=== PATIENT | female | born 1970 | race Caucasian/White ===

== ENCOUNTER 2019-01-24 06:28 | Emergency (ER) | payer OTHER ==
--- NOTE | 2019-01-24 07:15 | ERPHSYRPT ---
- History of Present Illness Time Seen by Provider: 01/24/19 07:00 Source: patient Exam Limitations: no limitations Patient Subjective Stated Complaint: pt states she hit her head on a shelf when she stood up. denies loss of consciousness. Triage Nursing Assessment: pt alert and oriented, answers questions approp. pt ambulatory with steady gait noted. respirations nonlabored with lungs cta. skin pink warm and dry. approx 1cm lac noted to lt fron head with no bleeding noted at this time. pupils equal and reactive. bilat upper and lower ext strength equal and wnl. Physician History: 48 y/o white female hit her head on shelf when she suddenly stood up while at home. she had bleeding and sig pain in the area. still with headache and dizziness. no loc. no anticoag tx. tetanus status not utd. Occurred: just prior to arrival Severity: mild Head Injury Location: occipital Method of Injury: direct blow Loss of Consciousness: no loss of consciousness, dazed Associated Symptoms: headaches Allergies/Adverse Reactions: No Known Drug Allergies Allergy (Verified 01/24/19 06:47) Home Medications: Escitalopram Oxalate 10 mg [Lexapro 10 MG] 10 mg PO DAILY 05/03/17 [History] Gabapentin [Neurontin] 300 - 600 mg PO BID 05/03/17 [History] Hydrocodone/Acetaminophen [[place] 5-325 Tablet] 1 each PO [id number] PRN 05/03/17 [ History] Meloxicam [Mobic] 15 mg PO DAILY 05/03/17 [History] Omeprazole 20 MG [Prilosec 20 mg] 20 mg PO DAILY 05/03/17 [History] Tizanidine HCl [Zanaflex] 4 mg PO DAILY 07/24/17 [History] Hx Tetanus, Diphtheria Vaccination/Date Given: (unsure) Hx Influenza Vaccination/Date Given: No Hx Pneumococcal Vaccination/Date Given: No Immunizations Up to Date: No - Review of Systems Constitutional: No Symptoms Eyes: No Symptoms Ears, Nose, & Throat: No Symptoms Respiratory: No Symptoms Cardiac: No Symptoms Abdominal/Gastrointestinal: No Symptoms Genitourinary Symptoms: No Symptoms Musculoskeletal: No Symptoms Neurological: Dizziness, Headache Psychological: No Symptoms Endocrine: No Symptoms Hematologic/Lymphatic: No Symptoms Immunological/Allergic: No Symptoms All Other Systems: Reviewed and Negative - Past Medical History Pertinent Past Medical History: Yes Neurological History: Migraines ENT History: No Pertinent History Cardiac History: No Pertinent History Respiratory History: No Pertinent History Endocrine Medical History: No Pertinent History GI Medical History: No Pertinent History History: No Pertinent History Psycho-Social History: No Pertinent History Female Reproductive Disorders: Other Other Medical History: bartholian cyst - Past Surgical History Past Surgical History: Yes Neuro Surgical History: No Pertinent History Cardiac: No Pertinent History Respiratory: No Pertinent History Gastrointestinal: No Pertinent History Genitourinary: No Pertinent History Female Surgical History: Tubal Ligation, Other Other Surgical History: D&C, lt wrist x2 2017 - Social History Smoking Status: Current some day smoker How long have you smoked: occasional Exposure to second hand smoke: Yes Drug Use: none Patient Lives Alone: No - Female History Hx Last Menstrual Period: ablation Hx Now: No - Nursing Vital Signs Nursing Vital Signs: Initial Vital Signs Temperature 97.8 F 01/24/19 06:36 Pulse Rate 87 01/24/19 06:36 Respiratory Rate 16 01/24/19 06:36 Blood Pressure 139/76 01/24/19 06:36 O2 Sat by Pulse Oximetry 98 01/24/19 06:36 Pain Scale Pain Intensity 5 - Tariq Coma Score Best Eye Response (Clarkson): (4) open spontaneously Best Verbal Response (Tariq): (5) oriented Best Motor Response (Tariq): (6) obeys commands Clarkson Total: 15 - Physical Exam General Appearance: no apparent distress, alert, anxiety Head Injury: tenderness (at a top of head abrasion and 2mm puncture site. no active bleeding.) ENT Exam: airway nml, nml ext.inspection, hearing grossly normal, No evidence of ENT injury Neck Exam: supple, trachea midline, full range of motion, normal alignment, normal inspection Cardiovascular/Respiratory Exam: chest non-tender Gastrointestinal/Abdominal Exam: non tender Pelvic Exam: not done Rectal Exam: not done Back Exam: normal inspection, normal range of motion, No CVA tenderness, No vertebral tenderness Extremity Exam: non-tender Mental Status Exam: alert, oriented x 3, cooperative oracle erp developer Exam: normal hearing, normal speech, PERRL, tongue midline Coordination/Gait Exam: normal finger to nose, normal gait, normal cerebellar function Motor/Sensory Exam: no motor deficit, no sensory deficit, no pronator drift Skin Exam: normal color, warm, dry Lymphatic Exam: No adenopathy SpO2 Interpretation: normal SpO2: 98 O2 Delivery: Room Air - Course Nursing assessment & vital signs reviewed: Yes Ordered Tests: Active Orders 24 hr Category Date Time Status HEAD WITHOUT CONTRAST [CT] Stat Exams 01/24/19 07:17 Taken Medication Summary Discontinued Medications Generic Name Dose Route Start Last Admin Trade Name Joeyq PRN Reason Stop Dose Admin Diphtheria/Tetanus/Acell Pertussis 0.5 ml 01/24/19 07:16 01/24/19 07:19 Adacel Vial IM 01/24/19 07:17 0.5 ml .ONCE ONE Administration Diphtheria/Tetanus/Acell Pertussis Confirm 01/24/19 07:19 Adacel Vial Administered 01/24/19 07:20 Dose 0.5 ml IM .STK-MED ONE - Progress Progress: unchanged Progress Note: 01/24/19 07:48 ct head-tiny vertex scalp hematoma. otherwise negative Counseled pt/family regarding: diagnosis, need for follow-up, rad results - Departure Departure Disposition: Home Clinical Impression: Head injury, Scalp abrasion, non-infected Condition: Stable Critical Care Time: No Referrals: SHERRY DRUMMOND [Primary Care Provider] - Additional Instructions: keep site clean daily with soap and water. may apply antibiotic ointment daily. use tylenol and ibuprofen for pain.
[2019-01-24] MEDS ORDERED: Adacel Vial IM ONE ×2 (07:16→07:19)
[2019-01-24 07:54] VITALS: BP 151/66; PULSE 77; O2SAT 97
--- NOTE | 2019-01-24 08:31 | XRAY ---
Indication: Head injury. Multiple contiguous axial images obtained through the head without contrast. Comparison: None Tiny scalp hematoma near the right vertex. Normal appearing brain parenchyma, ventricles, and bony calvarium. Visualized paranasal sinuses and mastoid air cells are clear. Impression: Scalp hematoma. Normal CT head without contrast exam. CTDI 43.61
== END 2019-01-24 07:54 | disposition home or self-care (01) ==
LOC: ED 06:28
DX: S00.83XA Contusion of other part of head, initial encounter (principal); S00.01XA Abrasion of scalp, initial encounter; W22.8XXA Striking against or struck by other objects, initial encounter
CPT/HCPCS: 70450; 90471; 90715; 99284